=== PATIENT | male | born 1950 ===

== ENCOUNTER 2021-06-07 07:51 | Emergency (ER) | payer MEDICARE, SELFPAY ==
[2021-06-07] VITALS (10 sets, daily range): BP systolic 73–102; BP diastolic 40–57; PULSE 69–78; RESP 15–24; TEMP 36.6; O2SAT 94–100
--- NOTE | ~2021-06-07 | US_ITS ---
EXAMINATION: US paracentesis abd w/image EXAM DATE: 06/07/2021 14:10 INDICATION: Ascites . TECHNIQUE: The procedure and its risks and benefits were discussed with the patient's spouse, . A lternatives also discussed. Potential risks discussed included bleeding and infection. The skin was p repped and draped in sterile fashion. 3 mL of 1% lidocaine was used for local anesthesia. Under ultra sound guidance, a 5 Fr catheter with trochar was advanced into the ascites in the right lower quadran t. Fluid was aspirated into vacuum bottles. A total of 4.5 L dat colored fluid was taken in total. The catheter was removed, and a dressing was applied. There were no immediate complications. FINDINGS: Ultrasound images demonstrate ascites. IMPRESSION: Status post removal 4.5 L ascites. Reviewed, dictated and finalized at location A. DRYER MECHANIC
--- NOTE | ~2021-06-07 | CT_ITS ---
EXAMINATION: CT abdomen pelvis wo con EXAM DATE: 06/07/2021 08:41 INDICATION: Abdominal distention. TECHNIQUE: Spiral CT of the abdomen and pelvis was performed without contrast. Axial, coronal and s agittal images of the abdomen and pelvis were reviewed. The dose-length product (DLP) for this exami [facility] was 1717.65 mGy-cm. The exposure was tailored according to patient size (auto mA exposure con trol), and iterative reconstruction (ASIR) was used as additional dose reduction technique. There is no prior study for comparison. FINDINGS: There is cirrhosis and moderate to large amount of ascites. Normal spleen size. Adrenal gla nds and pancreas are unremarkable. Gallbladder is unremarkable. No biliary obstruction. There is n o nephrolithiasis or hydronephrosis. The prostate is unremarkable. Redding catheter within the bladd er. There is no retroperitoneal or pelvic lymphadenopathy. Small to moderate left, small right ing uinal fat-containing hernias. Appendix is not identified. There is mild sigmoid colonic diverticulosis. There is no adjacent infla mmatory change to suggest diverticulitis. The stomach and small bowel are unremarkable. There is exp ected amount of colonic stool. No free intraperitoneal gas. There is moderate to large left pleural effusion, and a moderate right pleural effusion. Adjacent multisegmental atelectasis. Heart is marvel l in size. The lung bases are unremarkable. Thoracic diffuse idiopathic skeletal hyperostosis. There are no osteoblastic or osteolytic lesions identified. Left hip arthroplasty. IMPRESSION: 1. Cirrhosis, moderate to large amount of ascites. 2. Moderate to large left, moderate right pleural effusions, adjacent multisegmental atelectasis. 3. Mild sigmoid diverticulosis. Reviewed, dictated and finalized at location A. ER CARE SOCIAL WORKER IMPRESSION: 1. Cirrhosis, moderate to large amount of ascites. 2. Moderate to large left, moderate right pleural effusions, adjacent multiseg mental atelectasis. 3. Mild sigmoid diverticulosis.
--- NOTE | 2021-06-07 08:15 | PC.NURSE ---
Contacted [facility] [place] to attempt to receive nurse to nurse report. They will call back.
--- NOTE | 2021-06-07 08:26 | ED.GENADULT ---
HPI - General Adult General Chief complaint: Unspecified Stated complaint: liver cirrhosis Time Seen by Provider: 06/07/21 08:16 Source: patient and family Mode of arrival: EMS Limitations: no limitations History of Present Illness HPI narrative: Patient is a 71-year-old male transferred here from the hospital from [facility], per family's request. According to patient has been hospitalized for approximately 33 straight days due to his liver cirrhosis, congestive heart failure and renal failure. They requested the transfer since patient lives in this area. states that they spoke to his primary care physician and case management in this hospital so he can be admitted here. Case management requested to come to the emergency room to discuss the case. Related Data Allergies Allergy/AdvReac Type Severity Reaction Status Date / Time No Known Allergies Allergy Unknown Verified 06/07/21 08:55 Review of Systems Review of Systems: All systems reviewed & are unremarkable except as noted in HPI and below Constitutional: Constitutional: Denies body ache(s), Denies chills, Denies excessive sweating, Denies fever(s), Denies headache(s), Denies lethargy, Denies malaise and Denies weight loss Eyes: Eyes: Denies blurry vision, Denies change in vision and Denies loss of vision ENT: Denies dizziness, Denies ear discharge, Denies headache(s), Denies lip swelling, Denies epistaxis, Denies nasal congestion, Denies neck pain, Denies throat swelling and Denies tongue swelling Cardiovascular: Cardiovascular: Denies chest pain, Denies chest pain at rest, Denies chest pain with activity, Denies diaphoresis, Denies rapid heart rate, Denies irregular heart rhythm, Denies lightheadedness, Denies palpitations, Denies dyspnea and Denies dyspnea on exertion Respiratory: Respiratory: Denies chest congestion, Denies cough, Denies hemoptysis, Denies dyspnea and Denies dyspnea on exertion Gastrointestinal: Gastrointestinal: Denies abdominal pain, Denies melena, Denies hematochezia, Denies diarrhea, Denies nausea, Denies vomiting and Denies hematemesis Musculoskeletal: Musculoskeletal: Denies abnormal gait, Denies deformity, Denies joint swelling, Denies limited range of motion, Denies neck pain and Denies numbness Neurologic: Denies Abnormal speech present, Denies abnormal gait, Denies confusion, Denies dizziness, Denies headache(s), Denies focal weakness, Denies loss of vision, Denies numbness, Denies Other visual disturbances, Denies Sensory deficit (Neuro) and Denies weakness Psychiatric: Psychiatric: Denies confusion, Denies depression, Denies auditory hallucinations, Denies homicidal ideation and Denies suicidal ideation Endocrine: Endocrine: Denies cold intolerance, Denies excessive sweating, Denies fatigue, Denies heat intolerance and Denies palpitations Hematologic/Lymphatic: Hematologic/Lymphatic: Denies easy bleeding and Denies easy bruising Allergic/Immunologic: Allergic/Immunologic: Denies lip swelling, Denies throat swelling and Denies tongue swelling PMFSH Comments Past medical history: Hypoxemic hypercarbic respiratory failure, liver cirrhosis, renal failure, anemia, morbid obesity, hepatorenal syndrome Family history: Unknown Social history: Non-smoker no EtOH or drug use Exam Const: General: cooperative and in distress Nutritional Appearance: obese Orientation/consciousness: oriented to person and oriented to place Limitations: no limitations HENMT: Head: normal to inspection, normocephalic and atraumatic Ears: hearing grossly normal bilaterally, TM normal on the right and TM normal on the left General nose exam: Normal external nose present, Normal nares present and No nasal discharge present Face and sinus: normal facial exam Mouth: Yes Normal oral and palatal mucosa present, Yes lip normal, Yes tongue normal and Yes oropharynx normal Throat: posterior oropharynx normal, tonsils normal and uvula midline Eyes: S
--- NOTE | 2021-06-07 08:26 | PC.NURSE ---
ED care coordination contacted to assist with possible care home care facilities VS hospice VS home care.
[2021-06-07 09:58] LABS: Basophils Percent Auto 0.5 % (0.2-1.2); Eosinophils Absolute Auto 0.2 K/mm3 (0-0.3); Eosinophils Percent Auto 2.5 % (0-4.4); Hemoglobin 9.8 g/dL (14.0-18.0); Immature Granulocyte Absolute 0.19 K/mm3 (0.00-0.031); Immature Granulocyte Percent A 2.2 % (0-0.5); Lymphocytes Absolute Auto 0.92 K/mm3 (0.9-3.2); Lymphocytes Percent Auto 10.7 % (18.3-44.2); Mean Corpuscular Volume 111.6 fl (80-100); Mean Platelet Volume 9.1 fl (7.4-10.4); Monocytes Absolute Auto 0.7 K/mm3 (0.1-0.6); Monocytes Percent Auto 7.6 % (2.6-8.5); Neutrophils Absolute Auto 6.6 K/mm3 (1.3-6.7); Neutrophils Percent Auto 76.5 % (45.5-73.1); Platelet Count Result 214 k/mm3 (150-375); Red Blood Count 2.51 M/mm3 (4.6-6.20); White Blood Count 8.6 K/mm3 (4.5-10.0)
[2021-06-07 10:14] LABS: INR 1.9; Prothrombin Time 21.5 Seconds (11.1-14.7)
[2021-06-07 10:15] LABS: Partial Thromboplastin Time 66.8 SECONDS (22.3-36.8)
[2021-06-07 10:18] LABS: Alanine Aminotransferase 68 U/L (4-50); Albumin Level 2.7 g/dL (3.5-5.1); Alkaline Phosphatase 249 U/L (38-126); Anion Gap 9 mmol/L (8-16); Aspartate Amino Transferase 187 U/L (17-59); Blood Urea Nitrogen 85 mg/dL (9-20); Calcium 8.1 mg/dL (8.4-10.2); Carbon Dioxide 32 mmol/L (22-30); Chloride 84 mmol/L (98-107); Estimated CRCL calculation 56 ml/min; Estimated Glomerular Filt Rate 37; Glucose 115 mg/dL (65-110); Potassium 3.9 mmol/L (3.4-5.0); Sodium 125 mmol/L (137-145)
--- NOTE | 2021-06-07 13:34 | PC.NURSE ---
behavioral health care manager and pt's pcp at bedside
--- NOTE | 2021-06-07 13:42 | PCCCNOTE ---
Called to ED to speak with family about hospice. Met with patient and spouse Laura at bedside, patient is sleeping, discussed with Laura, she is familiar with hospice as she has used it with other family members towards end of life. Does not want patient transferred again. Is interested in [facility] [place] [facility]. Called to [facility] and spoke with Theresa provided demographics and that provider would like patient seen in ED. Theresa states that she should be there in about 30 minutes. Updated hospitalist Piedad, Patient's Spouse and Bedside RN Debra. Printed facesheet and ED notes for barrel assembler when she arrives.
--- NOTE | 2021-06-07 14:33 | PC.NURSE ---
hospice nurse in with pt and family. pain meds per orders. pt c/o hurt all over
[2021-06-07] MEDS: HYDROmorphone HCL INJ (*CRX) 1 MG/ML SYR 0.5 MG IV PUSH (14:40)
--- NOTE | 2021-06-07 16:04 | PM.IMHP ---
H&P: HPI History of Present Illness Date/Time: 06/07/21 16:04 this is a 71-year-old male patient who was transferred here per ambulance from our care line a. The patient had been hospitalized for approximately a month in [place]. The family brought the patient closer to be here with other family members. The patient has a history of non alcoholic liver disease, congestive heart failure and renal failure. Most likely hepatorenal syndrome. The patient jaundice and has anasarca. The patient has had a poor appetite. The patient is arousable and is able to answer some questions. However he does fall right back to sleep. I asked the if this was normal for the patient she stated that it was a long trip in that he is very tired. The stated that she was considering hospice at this time. She would like to talk to hospice and then talk to the family before she makes a final decision. However she would like to make the patient a DNR DNI and make him comfortable. The patient has a midline to the left forearm. Patient's abdominal pelvis CT was read as cirrhosis, moderate to large amount of ascites. Moderate to large left, moderate right pleural effusions, multi segmental atelectasis. Mild sigmoid diverticulosis. The patient has had 2 previous paracentesis. This is the 3rd paracentesis. The patient's blood pressure is soft so I did order some albumin. Paracentesis ultrasound was performed today as the patient is very short of breath. A total for 4.5 L of dat colored fluid was taken in total. His H&H is 9.8 and 28.0. Platelets are normal. The patient has a anal fissure and hemorrhoid that he was going to have surgery however was unable to have surgery performed due to his liver disease. The family met with hospice and decided on hospice. The patient will be admitted to inpatient hospice [facility]. The patient is being admitted to inpatient services for hospice. Chief Complaint: Anasarca with non alcoholic liver disease Review of Systems Review of Systems: The patient is lethargic but easily aroused and the is answer questions at this time. All systems reviewed & are unremarkable except as noted in HPI and below Constitutional: Constitutional: Reports as per HPI and Reports no additional constitutional complaints Eyes: Eyes: Reports as per HPI and Reports no additional eye complaints ENT: Reports system reviewed and no additional complaints, except as documented and Reports Normal hearing present Cardiovascular: Cardiovascular: Reports no additional cardiovascular complaints Respiratory: Respiratory: Reports no additional respiratory complaints and Reports no additional respiratory complaints Gastrointestinal: Gastrointestinal: Reports as per HPI and Reports no additional gastrointestinal complaints Musculoskeletal: Musculoskeletal: Reports no additional musculoskeletal complaints Integumentary/Breasts: Skin/Breast: Reports system reviewed and no additional complaints, except as docu and Reports as per HPI Neurologic: Reports system reviewed and no additional complaints, except as documented, Reports as per HPI and Reports Normal hearing present Psychiatric: Psychiatric: Reports no additional psychiatric complaints and Reports as per HPI Endocrine: Endocrine: Reports no additional endocrine complaints Hematologic/Lymphatic: Hematologic/Lymphatic: Reports no additional hematologic/lymphatic complaints Allergic/Immunologic: Allergic/Immunologic: Reports no additional allergic/immunologic complaints [facility] Past Medical History Medical History (Updated 06/07/21 @ 16:49 by Piedad Spencer NP) Anemia of chronic disease Ascites 4.5 L of fluid drained on 06/07/2021 CHF (congestive heart failure), NYHA class I Chronic hyponatremia Chronic renal failure, stage 3 (moderate) DNR (do not resuscitate) Hematuria History of abdominal paracentesis Hypocalcemia Nonalcoholic steatohepatitis (ALANIZ) S/P abdomina
[2021-06-07] MEDS: CALCIUM GLUC 1,000 MG/NS 50 ML 1,000 MG/50 ML BAG 100 MG IVPB (17:15)
[2021-06-10 22:35] LABS: Amylase Peritoneal Fluid <10 U/L
[2021-06-12 15:00] LABS: Albumin Peritoneal Fluid 0.6 g/dL
== END 2021-06-07 16:47 | disposition hospice, inpatient (51) ==
PROVIDERS: Nurse Practitioner; Emergency Provider Emergency Medicine; PCP Internal Medicine; Visit Provider Internal Medicine
DX: R18.8 Other ascites (principal); K74.60 Unspecified cirrhosis of liver; K76.7 Hepatorenal syndrome; N18.30 Chronic kidney disease, stage 3 unspecified; I50.9 Heart failure, unspecified; K64.9 Unspecified hemorrhoids; K60.4 Rectal fistula; E87.1 Hypo-osmolality and hyponatremia; E83.51 Hypocalcemia; Z66 Do not resuscitate; D64.9 Anemia, unspecified; E66.01 Morbid (severe) obesity due to excess calories; Z68.43 Body mass index [BMI] 50.0-59.9, adult; J96.92 Respiratory failure, unspecified with hypercapnia; J96.91 Respiratory failure, unspecified with hypoxia
CPT/HCPCS: 36415; 49083; 74176; 80053; 82042; 82150; 85025; 85610; 85730; 87070; 87075; 87205; 96374; 99285; J0610; J1170

== ENCOUNTER 2021-06-07 17:45 | HOS | payer OTHER, MEDICARE, SELFPAY ==
[2021-06-07 17:48] VITALS: BMI 48.2
[2021-06-07 18:04] VITALS: BMI 49.7
--- NOTE | 2021-06-07 19:39 | ADMGEN ---
This patient, Jose Castro, was admitted to [facility] Surg Room 318-01. Patient/family oriented to hospital policies and general routines including ID bracelet, bed and alarms, visiting hours, pain management, procedures, bathroom and other care routines, personal items, smoking policy, room service/diet, and visiting hours. Information on how to activate the Rapid Response Team has been discussed. Patient/Family are encouraged to report perceived risks to care and to ask questions if they do not understand what they are told or what they should do. Information taken from and given to son-in-law.
[2021-06-07 20:00] VITALS: BP 98/34; PULSE 72; RESP 12; TEMP 36; O2SAT 97
[2021-06-07] MEDS: ALBUMIN HUMAN 25% 25 GM/100 ML 100 ML IVPB (21:40)
[2021-06-08] MEDS: ALBUMIN HUMAN 25% 25 GM/100 ML 100 ML IVPB ×2 (05:04→11:00)
[2021-06-08 08:00] VITALS: BP 105/38; PULSE 73; RESP 14; TEMP 36.1; O2SAT 98
--- NOTE | 2021-06-08 08:50 | PM.IMHP ---
H&P: HPI History of Present Illness Date/Time: 06/08/21 0900 Chief Complaint: Anasarca with non alcoholic liver disease Narrative: Patient is a 71-year-old male with a past medical history of anemia, ascites, CHF, not alcoholic hepatitis who transferred here per ambulance from [place]. Patient was in [place] when he was admitted to the hospital for the last 30 days. His decided to bring the patient here so that he could be closer to home. Upon arrival patient was seen and did want him to be seen in the ED however she was considering hospice. Family and patient were met with hospice nurse and coordinated care and placed patient on hospice. His felt it was best that the patient was made comfortable along with a DNR DNI. Upon arrival patient did go for an ultrasound-guided paracentesis which they were able to take off 4.5 L. [facility] accepted the patient for inpatient hospice. Currently patient is awake asking for his reading glasses and also stated that he felt better. Patient was also hungry asking for food and denied abdominal pain, nausea, vomiting. Patient also denies headache, chest pain, shortness of breath, sweats, fevers, chills. Patient is jaundice but seems to be very stable at this time. Patient denies pain, anxiety, or any other comfort needs at this time. Review of Systems Review of Systems: All systems reviewed & are unremarkable except as noted in HPI and below PMFSH Past Medical History Medical History Anemia of chronic disease Ascites 4.5 L of fluid drained on 06/07/2021 CHF (congestive heart failure), NYHA class I Chronic hyponatremia Chronic renal failure, stage 3 (moderate) DNR (do not resuscitate) Hematuria History of abdominal paracentesis Hypocalcemia Nonalcoholic steatohepatitis (ALANIZ) S/P abdominal paracentesis Surgical History Surgical History H/O shoulder surgery S/P hip replacement Family History Family History Father Alcoholism Sibling Drug overdose Breath Social History Social History (Updated 06/09/21 @ 11:03 by Jah G. Montoya, [employer]IL PROCESS STILLMAN-C) Social History: Patient is and currently lives with his . Patient has a big support system with his family patient has been made hospice and will be a DNR DNI at this time. Smoking status: Smoker, status unknown Alcohol intake: unknown Substance use: unknown Living arrangements: with family Occupation/Education: retired Gender identity (if verbalized by the patient): Male Sexual Orientation (if Verbalized by the Patient): Straight or Heterosexual Spiritual care concerns: No Meds Home Medications and Allergies Allergies Allergy/AdvReac Type Severity Reaction Status Date / Time No Known Allergies Allergy Unknown Verified 06/07/21 08:55 Vital Signs Vital Signs - 24 hr 06/08/21 20:00 06/09/21 08:00 Temperature 36.2 C L Pulse Rate 73 Respiratory Rate 18 Blood Pressure 81/33 L Pulse Oximetry 98 98 Exam Const: General: cooperative, comfortable, no acute distress, well developed, alert and awake Nutritional Appearance: well nourished, obese and overweight Orientation/consciousness: oriented to person, oriented to place, oriented to time and patient oriented x3 Limitations: no limitations and physical limitations HENMT: Head: normal to inspection Ears: hearing grossly normal bilaterally General nose exam: Normal external nose present Mouth: Yes Normal oral and palatal mucosa present, Yes lip normal, Yes tongue normal and Yes moist mucous membranes Teeth and gingiva: abnormal tooth and associated gingiva and poor dentition Eyes: General: appearance normal, both eyes and all related structures Visual Salcedo: normal visual salcedo by confrontation Alignment and Position: alignment normal and
--- NOTE | 2021-06-08 09:00 | PM.IMPN ---
Progress Note: A&P Assessment and Plan (1) Hospice care patient: Code(s): Z51.5 - Encounter for palliative care Status: Acute Assessment and Plan: Family decided hospice care for end stage liver disease Care will be comfort focused Urinary catheter placed Morphine and Ativan on board Regular diet (2) End of life care: Code(s): Z51.5 - Encounter for palliative care Status: Acute Assessment and Plan: See above (3) Comfort measures only status: Code(s): Z51.5 - Encounter for palliative care Status: Acute Assessment and Plan: See above (4) Ascites: Qualifiers: Ascites type: other type Qualified Code(s): R18.8 - Other ascites Code(s): R18.8 - Other ascites Status: Chronic Assessment and Plan: Paracentesis today 4.5 L drained off of his abdomen albumin x 3 bags for extensive drainage Paracentesis to be repeated for comfort Time Spent With Patient Time with patient: 25 - 35 minutes Subjective Date/time seen: 06/08/21 0900 Interval history: Date/Time: 06/07/21 16:04 This is a 71-year-old male patient who was transferred here per ambulance from our care line a. The patient had been hospitalized for approximately a month in [place]. The family brought the patient closer to be here with other family members. The patient has a history of non alcoholic liver disease, congestive heart failure and renal failure. Most likely hepatorenal syndrome. The patient jaundice and has anasarca. The patient has had a poor appetite. The patient is arousable and is able to answer some questions. However he does fall right back to sleep. I asked the if this was normal for the patient she stated that it was a long trip in that he is very tired. The stated that she was considering hospice at this time. She would like to talk to hospice and then talk to the family before she makes a final decision. However she would like to make the patient a DNR DNI and make him comfortable. The patient has a midline to the left forearm. Patient's abdominal pelvis CT was read as cirrhosis, moderate to large amount of ascites. Moderate to large left, moderate right pleural effusions, multi segmental atelectasis. Mild sigmoid diverticulosis. The patient has had 2 previous paracentesis. This is the 3rd paracentesis. The patient's blood pressure is soft so I did order some albumin. Paracentesis ultrasound was performed today as the patient is very short of breath. A total for 4.5 L of dat colored fluid was taken in total. His H&H is 9.8 and 28.0. Platelets are normal. The patient has a anal fissure and hemorrhoid that he was going to have surgery however was unable to have surgery performed due to his liver disease. The family met with hospice and decided on hospice. The patient will be admitted to inpatient hospice [facility]. The patient is being admitted to inpatient services for hospice. Date/Time 06/08/21 0900 Patient is lying in bed comfortably. Patient states that he is doing okay he denies pain and anxiety at this time. Patient did state that he was looking for his reading glasses because he could not read. Family member informed me that the glasses were with his . Patient denies chest pain, shortness of breath, nausea, vomiting, diarrhea, constipation patient does admit to being hungry and wants to eat breakfast. Review of Systems Review of Systems: All systems reviewed & are unremarkable except as noted in HPI and below Exam Const: General: cooperative, comfortable, no acute distress, well developed, alert and awake Nutritional Appearance: well nourished, obese and overweight Orientation/consciousness: oriented to person, oriented to place, oriented to time and patient oriented x3 Limitations: physical limitations HENMT: Head: normal to inspection Ears: hearing grossly norm
[2021-06-08] MEDS: hydrOXYzine pamoate 25 MG CAPSULE PO (19:01)
[2021-06-08 20:00] VITALS: BP 81/33; PULSE 73; RESP 14; RESP 18; TEMP 36.2; O2SAT 98
[2021-06-09 08:00] VITALS: O2SAT 98
--- NOTE | 2021-06-09 08:40 | PM.IMPN ---
Progress Note: A&P Assessment and Plan (1) Hospice care patient: Code(s): Z51.5 - Encounter for palliative care Status: Acute Assessment and Plan: Continue current therapy Family decided hospice care for end stage liver disease Care will be comfort focused Urinary catheter placed Morphine and Ativan on board Regular diet (2) End of life care: Code(s): Z51.5 - Encounter for palliative care Status: Acute Assessment and Plan: See above (3) Comfort measures only status: Code(s): Z51.5 - Encounter for palliative care Status: Acute Assessment and Plan: See above (4) Ascites: Qualifiers: Ascites type: other type Qualified Code(s): R18.8 - Other ascites Code(s): R18.8 - Other ascites Status: Chronic Assessment and Plan: Paracentesis 06/08/2021 4.5 L drained off of his abdomen albumin x 3 bags for extensive drainage Paracentesis to be repeated for comfort Subjective Date/time seen: 06/09/2140 Interval history: Date/Time: 06/08/21899 Patient is a 71-year-old male with a past medical history of anemia, ascites, CHF, not alcoholic hepatitis who transferred here per ambulance from [place]. Patient was in [place] when he was admitted to the hospital for the last 30 days. His decided to bring the patient here so that he could be closer to home. Upon arrival patient was seen and did want him to be seen in the ED however she was considering hospice. Family and patient were met with hospice nurse and coordinated care and placed patient on hospice. His felt it was best that the patient was made comfortable along with a DNR DNI. Upon arrival patient did go for an ultrasound-guided paracentesis which they were able to take off 4.5 L. [facility] accepted the patient for inpatient hospice. Currently patient is awake asking for his reading glasses and also stated that he felt better. Patient was also hungry asking for food and denied abdominal pain, nausea, vomiting. Patient also denies headache, chest pain, shortness of breath, sweats, fevers, chills. Patient is jaundice but seems to be very stable at this time. Patient denies pain, anxiety, or any other comfort needs at this time. Date/Time 06/08/21899 Patient is lying in bed comfortably. Patient states that he is doing okay he denies pain and anxiety at this time. Patient did state that he was looking for his reading glasses because he could not read. Family member informed me that the glasses were with his . Patient denies chest pain, shortness of breath, nausea, vomiting, diarrhea, constipation patient does admit to being hungry and wants to eat breakfast. Date/time 06/09/21 0840 Patient is lying in bed and looks very comfortable. He denies pain and anxiety at this time. He was eating and drinking and was able to tell me how he was feeling. He denies chest pain, shortness of breath, nausea, vomiting, diarrhea, constipation. He is able to tolerate food. Talked to his son-in-law and his who expressed no new needs at this time. Review of Systems Review of Systems: All systems reviewed & are unremarkable except as noted in HPI and below Exam Const: General: cooperative, comfortable, no acute distress, well developed, alert and awake Nutritional Appearance: well nourished, obese and overweight Orientation/consciousness: oriented to person, oriented to place, oriented to time and patient oriented x3 Limitations: no limitations and physical limitations HENMT: Head: normal to inspection Ears: hearing grossly normal bilaterally General nose exam: Normal external nose present Mouth: Yes Normal oral and palatal mucosa present, Yes lip normal, Yes tongue normal and Yes moist mucous membranes Teeth and gingiva: abnormal tooth and associated gingiva and poor dentition Eyes: General: appearance normal, both e
[2021-06-09] MEDS: MORPHINE SULFATE (*CRX) 2 MG/ML INJ IV PUSH (09:49)
[2021-06-09 14:00] VITALS: BP 80/39; PULSE 74; RESP 16; TEMP 36.3; O2SAT 97
[2021-06-09] MEDS: MORPHINE SULFATE ORAL CONC SOL (*CRX) 10 MG/0.5 ML SYRINGE 5 MG PO (17:22)
[2021-06-09] MEDS: HYOSCYAMINE SULFATE 0.125 MG TABLET PO (18:18)
[2021-06-09] MEDS: LORazepam INJ (*CRX) 2 MG/ML VIAL 1 MG IV PUSH (18:57)
[2021-06-09 20:00] VITALS: BP 105/37; PULSE 74; RESP 16; TEMP 36.1; O2SAT 96
[2021-06-10 08:25] VITALS: O2SAT 96
[2021-06-10] MEDS: HYOSCYAMINE SULFATE 0.125 MG TABLET PO ×2 (10:44→15:38)
--- NOTE | 2021-06-10 10:45 | PM.IMPN ---
Progress Note: A&P Assessment and Plan (1) Hospice care patient: Code(s): Z51.5 - Encounter for palliative care Status: Acute Assessment and Plan: Continue current therapy Family decided hospice care for end stage liver disease Care will be comfort focused Urinary catheter placed Morphine and Ativan on board Regular diet Assess for line placement needs, current 22g inserted (2) End of life care: Code(s): Z51.5 - Encounter for palliative care Status: Acute Assessment and Plan: See above (3) Comfort measures only status: Code(s): Z51.5 - Encounter for palliative care Status: Acute Assessment and Plan: See above (4) Ascites: Qualifiers: Ascites type: other type Qualified Code(s): R18.8 - Other ascites Code(s): R18.8 - Other ascites Status: Chronic Assessment and Plan: Paracentesis 06/08/2021 4.5 L drained off of his abdomen albumin x 3 bags for extensive drainage Paracentesis to be repeated for comfort Time Spent With Patient Time with patient: Greater than 35 minutes Subjective Date/time seen: 06/10/21 10:45 Interval history: Date/Time: 06/08/21 0900 Patient is a 71-year-old male with a past medical history of anemia, ascites, CHF, not alcoholic hepatitis who transferred here per ambulance from [place]. Patient was in [place] when he was admitted to the hospital for the last 30 days. His decided to bring the patient here so that he could be closer to home. Upon arrival patient was seen and did want him to be seen in the ED however she was considering hospice. Family and patient were met with hospice nurse and coordinated care and placed patient on hospice. His felt it was best that the patient was made comfortable along with a DNR DNI. Upon arrival patient did go for an ultrasound-guided paracentesis which they were able to take off 4.5 L. [facility] accepted the patient for inpatient hospice. Currently patient is awake asking for his reading glasses and also stated that he felt better. Patient was also hungry asking for food and denied abdominal pain, nausea, vomiting. Patient also denies headache, chest pain, shortness of breath, sweats, fevers, chills. Patient is jaundice but seems to be very stable at this time. Patient denies pain, anxiety, or any other comfort needs at this time. Date/Time 06/08/21 0900 Patient is lying in bed comfortably. Patient states that he is doing okay he denies pain and anxiety at this time. Patient did state that he was looking for his reading glasses because he could not read. Family member informed me that the glasses were with his . Patient denies chest pain, shortness of breath, nausea, vomiting, diarrhea, constipation patient does admit to being hungry and wants to eat breakfast. Date/time 06/09/21 0840 Patient is lying in bed and looks very comfortable. He denies pain and anxiety at this time. He was eating and drinking and was able to tell me how he was feeling. He denies chest pain, shortness of breath, nausea, vomiting, diarrhea, constipation. He is able to tolerate food. Talked to his son-in-law and his who expressed no new needs at this time. Date/Time 06/10/21 1045 Patient is lying in bed sleeping in looks very comfortable. He did start talking to me so I did ask him if was doing okay. Patient denies pain, anxiety, chest pain, shortness of breath, nausea and vomiting. Patient is having bladder spasms according to the . I did talk to the family about any needs which they deny at this time. Review of Systems Review of Systems: All systems reviewed & are unremarkable except as noted in HPI and below Exam Const: General: cooperative, comfortable, no acute distress, well developed, alert and awake Nutritional Appearance: well nourished, obese and overweight Orientation/consciousness: o
[2021-06-10] MEDS: MORPHINE SULFATE (*CRX) 2 MG/ML INJ IV PUSH ×2 (13:26→17:52)
[2021-06-10 15:44] VITALS: BP 68/31; PULSE 70; RESP 20; TEMP 35.7; O2SAT 97
[2021-06-10 19:50] VITALS: BP 123/73; PULSE 74; RESP 16; TEMP 36.1; O2SAT 100
[2021-06-11 08:00] VITALS: BP 61/24; PULSE 61; RESP 16; TEMP 35.9; O2SAT 93
--- NOTE | 2021-06-11 08:40 | PM.IMPN ---
Progress Note: A&P Assessment and Plan (1) Hospice care patient: Code(s): Z51.5 - Encounter for palliative care Status: Acute Assessment and Plan: Continue current therapy Family decided hospice care for end stage liver disease Care will be comfort focused Urinary catheter placed Morphine and Ativan on board Regular diet Assess for line placement needs, current 22g inserted, hospice denied midline placement (2) End of life care: Code(s): Z51.5 - Encounter for palliative care Status: Acute Assessment and Plan: See above (3) Comfort measures only status: Code(s): Z51.5 - Encounter for palliative care Status: Acute Assessment and Plan: See above (4) Ascites: Qualifiers: Ascites type: other type Qualified Code(s): R18.8 - Other ascites Code(s): R18.8 - Other ascites Status: Chronic Assessment and Plan: Paracentesis 06/08/2021 4.5 L drained off of his abdomen albumin x 3 bags for extensive drainage Paracentesis to be repeated for comfort Subjective Date/time seen: 06/11/21 08:40 Interval history: Date/Time: 06/08/21899 Patient is a 71-year-old male with a past medical history of anemia, ascites, CHF, not alcoholic hepatitis who transferred here per ambulance from [place]. Patient was in [place] when he was admitted to the hospital for the last 30 days. His decided to bring the patient here so that he could be closer to home. Upon arrival patient was seen and did want him to be seen in the ED however she was considering hospice. Family and patient were met with hospice nurse and coordinated care and placed patient on hospice. His felt it was best that the patient was made comfortable along with a DNR DNI. Upon arrival patient did go for an ultrasound-guided paracentesis which they were able to take off 4.5 L. [facility] accepted the patient for inpatient hospice. Currently patient is awake asking for his reading glasses and also stated that he felt better. Patient was also hungry asking for food and denied abdominal pain, nausea, vomiting. Patient also denies headache, chest pain, shortness of breath, sweats, fevers, chills. Patient is jaundice but seems to be very stable at this time. Patient denies pain, anxiety, or any other comfort needs at this time. Date/Time 11/21/21 0900 Patient is lying in bed comfortably. Patient states that he is doing okay he denies pain and anxiety at this time. Patient did state that he was looking for his reading glasses because he could not read. Family member informed me that the glasses were with his . Patient denies chest pain, shortness of breath, nausea, vomiting, diarrhea, constipation patient does admit to being hungry and wants to eat breakfast. Date/time 06/09/21 0840 Patient is lying in bed and looks very comfortable. He denies pain and anxiety at this time. He was eating and drinking and was able to tell me how he was feeling. He denies chest pain, shortness of breath, nausea, vomiting, diarrhea, constipation. He is able to tolerate food. Talked to his son-in-law and his who expressed no new needs at this time. Date/Time 06/10/21 1045 Patient is lying in bed sleeping in looks very comfortable. He did start talking to me so I did ask him if was doing okay. Patient denies pain, anxiety, chest pain, shortness of breath, nausea and vomiting. Patient is having bladder spasms according to the . I did talk to the family about any needs which they deny at this time. Date/Time Seen 06/11/21 0840 Patient is doing about the same today. He is lying in bed. He looks comfortable. Urine output looks to have dropped off. No complaints at this time. Family needs assessed with no current needs at this time either. Review of Systems Review of Systems: All systems reviewed & are unremarkable except as no
[2021-06-11] MEDS: ONDANSETRON INJ 4 MG/2 ML VIAL IV PUSH (13:58)
[2021-06-11] MEDS: MORPHINE SULFATE (*CRX) 2 MG/ML INJ IV PUSH (15:03)
[2021-06-11] MEDS: LORazepam INJ (*CRX) 2 MG/ML VIAL 1 MG IV PUSH ×3 (15:03→22:48)
[2021-06-11] MEDS: HYOSCYAMINE SULFATE 0.125 MG TABLET PO ×2 (18:08→22:48)
[2021-06-11] MEDS: MORPHINE SULFATE ORAL CONC SOL (*CRX) 10 MG/0.5 ML SYRINGE 20 MG SUBLINGUAL ×2 (18:08→22:50)
[2021-06-11 20:00] VITALS: BP 90/60; PULSE 76; RESP 16; TEMP 36.3; O2SAT 94
[2021-06-12] MEDS: LORazepam INJ (*CRX) 2 MG/ML VIAL 1 MG IV PUSH ×3 (03:31→11:59)
[2021-06-12] MEDS: HYOSCYAMINE SULFATE 0.125 MG TABLET PO ×3 (03:31→11:59)
[2021-06-12] MEDS: MORPHINE SULFATE ORAL CONC SOL (*CRX) 10 MG/0.5 ML SYRINGE 20 MG SUBLINGUAL ×3 (03:32→12:00)
[2021-06-12 08:00] VITALS: BP 65/22; PULSE 84; RESP 12; TEMP 35.9; O2SAT 78
--- NOTE | 2021-06-12 10:12 | PM.IMPN ---
Progress Note: A&P Assessment and Plan (1) Hospice care patient: Code(s): Z51.5 - Encounter for palliative care Status: Acute Assessment and Plan: Continue current therapy Family decided hospice care for end stage liver disease Care will be comfort focused Urinary catheter placed Morphine and Ativan on board Regular diet as tolerated for comfort Click open related as needed for secretions. (2) End of life care: Code(s): Z51.5 - Encounter for palliative care Status: Acute Assessment and Plan: See above (3) Comfort measures only status: Code(s): Z51.5 - Encounter for palliative care Status: Acute Assessment and Plan: See above (4) Ascites: Qualifiers: Ascites type: other type Qualified Code(s): R18.8 - Other ascites Code(s): R18.8 - Other ascites Status: Chronic Assessment and Plan: Paracentesis 06/08/2021 4.5 L drained off of his abdomen albumin x 3 bags for extensive drainage Paracentesis may be repeated for comfort Subjective Date/time seen: 06/12/21 10:12 S: Patient was examined at the bedside. He stable, peaceful and comfortable. Family members at the bedside in have any complaints or concerns. Interval history: Patient is a 71-year-old male with a past medical history of anemia, ascites, CHF, not alcoholic hepatitis who transferred here per ambulance from [place]. [facility] accepted the patient for inpatient hospice. Patient is lying in bed and looks very comfortable. No complaints at this time. Family needs assessed with no current needs at this time either. Review of Systems Review of Systems: All systems reviewed & are unremarkable except as noted in HPI and below ROS unobtainable: Yes unobtainable due to medical condition and unobtainable due to mental status Exam Const: General: cooperative, comfortable, no acute distress, well developed, alert and awake Nutritional Appearance: well nourished, obese and overweight Orientation/consciousness: oriented to person, oriented to place, oriented to time and patient oriented x3 Limitations: no limitations and physical limitations HENMT: Head: normal to inspection Ears: hearing grossly normal bilaterally General nose exam: Normal external nose present Mouth: Yes Normal oral and palatal mucosa present, Yes lip normal, Yes tongue normal and Yes moist mucous membranes Teeth and gingiva: abnormal tooth and associated gingiva and poor dentition Eyes: General: appearance normal, both eyes and all related structures Visual Richardson: normal visual richardson by confrontation Alignment and Position: alignment normal and position normal Eyelids: eyelids normal Conjunctivae: conjunctival abnormality bilateral (Jaundice) Pupils: Equal, round and reactive pupils present Neck: Neck: normal visual inspection, full ROM, trachea midline and supple Chest: Chest palpation & inspection: normal inspection of the chest Resp: Effort & Inspection: normal respiratory effort and able to speak in complete sentences Auscultation: clear to auscultation bilaterally Cardio: Jugular venous distension: no JVD Rate: regular rate Rhythm: regular rhythm Heart sounds: S1 normal heart sound present and S2 normal heart sound present Peripheral pulses: Peripheral pulses 2+ throughout GI: Inspection: normal to inspection Auscultation: normal bowel sounds Urinary Catheter: Urinary Catheter: patent and draining and urine dark Skin: General skin exam: crusts (bilateral lower legs), dry skin and jaundice Lesions: no lesions Rashes: no rashes Trauma: no lacerations or abrasions Wounds: no wounds Hair: normal Nails: normal Neuro: General: oriented to person, oriented to place, oriented to time, patient oriented x3, moves all extremities, Normal light touch and pain sensation, CN's II-XI intact bilaterally and Unable to assess gait Cranial nerves: Yes C
--- NOTE | 2021-06-12 16:03 | PC.NURSE ---
Called [facility] @ [phone] to notify them that the patient is in our morgue. [facility] stated that they will call us back when they have spoken to the family.
--- NOTE | 2021-06-18 09:38 | PM.DDS ---
Discharge Summary Date and Time Date of : 06/12/21 Time of : 14:03 Provider Pronounced By: Anna Cage Probable Cause of Probable Cause of : chronic liver cirrhosis Summary Hospital Course: Please refer to admission H& P. Briefly, this is a 71-year-old male patient recently hospitalized for approximately a month in [place]. The family brought the patient closer to be here with other family members. 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 The patient presented with jaundice and anasarca. The patient has had a poor appetite. The patient is arousable and is able to answer some questions. However he does fall right back to sleep. Patient's abdominal pelvis CT was read as cirrhosis, moderate to large amount of ascites. Moderate to large left, moderate right pleural effusions, multi segmental atelectasis. Mild sigmoid diverticulosis. The patient has had 2 previous paracentesis. He underwent a 3rd paracentesis is in our facility.. The patient's blood pressure is soft so I did order some albumin. Paracentesis ultrasound was performed today as the patient is very short of breath. A total for 4.5 L of dat colored fluid was taken in total. His H&H is 9.8 and 28.0. Platelets are normal. The patient has a anal fissure and hemorrhoid that he was going to have surgery however was unable to have surgery performed due to his liver disease. The family met with hospice [id number] and decided on hospice. The patient will be admitted to inpatient hospice [facility]. The patient is being admitted to inpatient services for hospice. His care was comfort focused. Urinary catheter was placed. Morphine and Ativan were scheduled to maintain comfort. Paracentesis was performed on 06/08/2021. 4.5 L were drained off of his abdomen. Albumin x 3 bags were administered for extensive drainage. Patient was pronounced on 06/12 2021. Additional Data Confirmation of as documented by pronouncing clinician: Pupillary Reflex, Palpable Pulses, Response to Stimuli, Heart Tones and Breath Sounds Name of Provider Notified: Dr. Esequiel Cerda Provider Notified: 14:07 Provider Requests Autopsy: No Pe[employer] Notified: Yes Date [facility] Notified of : 06/12/21 Time [facility] Notified of : 14:29
== END 2021-06-12 14:03 | disposition expired | DRG 951 ==
PROVIDERS: Admitting Provider Internal Medicine; PCP Internal Medicine; Visit Provider Internal Medicine
DX: Z51.5 Encounter for palliative care (principal); R18.8 Other ascites; Z68.42 Body mass index [BMI] 45.0-49.9, adult; I50.9 Heart failure, unspecified; E66.9 Obesity, unspecified; N18.30 Chronic kidney disease, stage 3 unspecified; D63.1 Anemia in chronic kidney disease; Z66 Do not resuscitate
CPT/HCPCS: A9270; C1751; J2060; J2270; J2405; P9047